=== PATIENT | male | born 1985 | race Caucasian/White ===

== ENCOUNTER → 2019-11-13 | Outpatient (CLI) | payer BC ==
--- NOTE | 2019-11-13 12:59 | RADIOLOGY REPORT (SQ) ---
EXAM DESCRIPTION: KNEE LEFT 3 VIEWS IMAGES COMPLETED DATE/TIME: 11/13/2019 12:21 pm REASON FOR STUDY: LT KNEE PAIN M25.562 PAIN IN LEFT KNEE COMPARISON: None. NUMBER OF VIEWS: Three views. TECHNIQUE: AP, lateral, and sunrise patella radiographic images acquired of the left knee. LIMITATIONS: None. FINDINGS: MINERALIZATION: Normal. BONES: Incomplete cortical lucency through the anterior aspect of the mid patella seen on the sunrise projection. No additional evidence of fracture. No suspicious osseous lesions. JOINT: No effusion. SOFT TISSUES: No soft tissue swelling. No radio-opaque foreign body. OTHER: No other significant finding. IMPRESSION: Incomplete cortical lucency through the anterior aspect of the mid patella seen on a sin gle projection, possibly incomplete fracture. Recommend correlation with point tenderness. TECHNICAL DOCUMENTATION: JOB ID: [id number] 2010 [employer]- All Rights Reserved Reading location - IP/workstation name: [email or web address]
== END ==
LOC: OD 12:09
PROVIDERS: ATTEND Nurse Practitioner Family
DX: M25.562 Pain in left knee (principal)